=== PATIENT | female | born 1930 | race Caucasian/White ===

== ENCOUNTER 2017-03-27 14:46 | Emergency (ER) | payer MEDICARE, BC ==
[2017-03-27 14:55] VITALS: BP 156/62
--- NOTE | 2017-03-27 15:17 | UC ---
Upper Extremity HPI - HPI Summary HPI Summary: pt presents with c/o left upper arm pain that was sudden after lifting a heavy box. Pt reports feeling of sudden "snap, pain" and "balling up" of left upper bicep. - History of Current Complaint Chief Complaint: UCUpperExtremity Stated Complaint: LEFT ARM INJURY Time Seen by Provider: 03/27/17 14:57 Hx Obtained From: Patient Hx Last Menstrual Period: n/a ?: No Onset/Duration: Sudden Onset, Still Present Severity Initially: Moderate Severity Currently: Mild Location Of Pain: Is Discrete @ - left upper arm/bicep Character: Dull, Aching Aggravating Factor(s): Movement, Lifting, Flexion, Extension, Internal/External Rotation, Abduction, Adduction Alleviating Factor(s): Rest Related History: Dominant Hand Right - Risk Factors DVT Risk Factors: Recent Travel - Allergies/Home Medications Allergies/Adverse Reactions: Allergies Allergy/AdvReac Type Severity Reaction Status Date / Time No Known Allergies Allergy Verified 03/27/17 14:55 PMH/Surg Hx/FS Hx/Imm Hx Previously Healthy: Yes - Surgical History Surgical History: Yes Surgery Procedure, Year, and Place: 1994 APPENDECTOMY, [place], [place]. 1989' UMBILICAL HERNIA REPAIR, [facility]. 1999 LEFT TOTAL KNEE REPLACEMENT, [facility]. 2003 RIGHT TOTAL KNEE REPLACEMENT, [place]. 2008 RIGHT TOTAL HIP REPLACEMENT, [facility] [address] , Rt Breast Lumpectomy 2008- [place]. 2009 RIGHT BREAST LUMPECTOMY, [place]. 2011 BILATERAL GROIN HERNIA (1 WAS "FAT"), [facility]. 2013 BACK SURGERY FUSION OF LOWER SPINE BONE, [facility]. SURGERY TO REPAIR WRINKLE RETINA. TUBAL LIGATION, - Family History Known Family History: Positive: Cardiac Disease - Social History Alcohol Use: Occasionally Substance Use Type: None Smoking Status (MU): Former Smoker Review of Systems Constitutional: Negative Skin: Negative Eyes: Negative ENT: Negative Respiratory: Negative Cardiovascular: Negative Gastrointestinal: Negative Genitourinary: Negative Motor: Decreased ROM - left elbow and upper extremity, Weakness - left upper extremity Neurovascular: Negative Musculoskeletal: Arthralgia, Decreased ROM - left elbow, upper extremity, Myalgia, Other: - positive "popye" sign in left upper arm/bicep Neurological: Negative Psychological: Negative All Other Systems Reviewed And Are Negative: Yes Physical Exam Triage Information Reviewed: Yes Appearance: Well-Appearing Vital Signs: Initial Vital Signs Temp 97.7 F 03/27/17 14:51 Pulse 86 03/27/17 14:51 Resp 14 03/27/17 14:51 BP 156/62 03/27/17 14:51 Pulse Ox 96 03/27/17 14:51 Eye Exam: Normal Respiratory Exam: Normal Respiratory: Positive: No respiratory distress Musculoskeletal: Positive: Strength Limited @ - left upper extremity, ROM Limited @ - left elbow, and upper extremity, Other: - positive popye sign left upper arm/bicep. Pt tenderness at anterior humeral head Neurological Exam: Normal Psychological Exam: Normal Skin Exam: Normal Upper Extremity Course/Dx - Course Course Of Treatment: I discussed with the pt the need to follow up with Dr. Andre as soon as possible for orthopedic evaluation. Pt verbalized understanding and agreed to plan of care. - Differential Dx/Diagnosis Differential Diagnosis/HQI/PQRI: Strain, Sprain Provider Diagnoses: left biceps tendon rupture. Discharge - Discharge Plan Condition: Stable Disposition: HOME Patient Education Materials: Tendon Rupture (ED) Referrals: Ivette Guerrero MD [Primary Care Provider] - Hung Andre MD [Medical Doctor] - Additional Instructions: Please go directly to Dr. Andre office upon release from urgent care.
== END 2017-03-27 15:19 | disposition home or self-care (01) ==
LOC: UCCORT 14:46
DX: S46.212A Strain of muscle, fascia and tendon of other parts of biceps, left arm, initial encounter (principal); X50.0XXA Overexertion from strenuous movement or load, initial encounter; Y92.9 Unspecified place or not applicable; Z87.891 Personal history of nicotine dependence
CPT/HCPCS: 99212; G0463

== ENCOUNTER 2017-10-20 09:11 | Emergency (ER) | payer MEDICARE, BC ==
[2017-10-20 10:12] VITALS: BP 148/66
--- NOTE | 2017-10-20 11:38 | UC ---
FLU HPI - HPI Summary HPI Summary: P tc/o sudden onset of fever, chills, body aches and cough X 2 days. - History of Current Complaint Chief Complaint: UCGeneralIllness Stated Complaint: FLU LIKE SYMPTOMS Time Seen by Provider: 10/20/17 11:14 Hx Obtained From: Patient Hx Last Menstrual Period: n/a ?: No Onset/Duration: Sudden Onset, Lasting Days Severity Currently: Mild Severity Initially: Moderate Pain Intensity: 0 Associated Signs & Symptoms: Positive: Fever, Myalgia, Nasal Congestion, Headache Related Hx: Possible Flu/Infectious Exposure - Risk Factors Influenza Risk Factors: Age 65 y/o or Older - Allergy/Home Medications Allergies/Adverse Reactions: Allergies Allergy/AdvReac Type Severity Reaction Status Date / Time No Known Allergies Allergy Verified 10/20/17 10:09 PMH/Surg Hx/FS Hx/Imm Hx Previously Healthy: Yes - Surgical History Surgical History: Yes Surgery Procedure, Year, and Place: 1994 APPENDECTOMY, [place], [place]. 1989' UMBILICAL HERNIA REPAIR, [facility]. 1999 LEFT TOTAL KNEE REPLACEMENT, [facility]. 2003 RIGHT TOTAL KNEE REPLACEMENT, [place]. 2007 RIGHT TOTAL HIP REPLACEMENT, [facility] , Rt Breast Lumpectomy 2008- [place]. 2008 RIGHT BREAST LUMPECTOMY, [place]. 2010 BILATERAL GROIN HERNIA (1 WAS "FAT"), [facility]. 2013 BACK SURGERY FUSION OF LOWER SPINE BONE, [facility]. SURGERY TO REPAIR WRINKLE RETINA. TUBAL LIGATION, - Family History Known Family History: Positive: Cardiac Disease - Social History Occupation: Retired Lives: With Family Alcohol Use: Occasionally Substance Use Type: None Smoking Status (MU): Former Smoker Have You Smoked in the Last Year: No Review of Systems Constitutional: Fever, Chills, Fatigue Skin: Negative Eyes: Negative ENT: Sinus Congestion Respiratory: Cough Cardiovascular: Negative Gastrointestinal: Negative Genitourinary: Negative Motor: Negative Neurovascular: Negative Musculoskeletal: Myalgia Neurological: Headache Psychological: Negative Is Patient Immunocompromised?: No All Other Systems Reviewed And Are Negative: Yes Physical Exam Triage Information Reviewed: Yes Appearance: Ill-Appearing Vital Signs: Initial Vital Signs Temp 99.1 F 10/20/17 10:06 Pulse 90 10/20/17 10:06 Resp 18 10/20/17 10:06 BP 148/66 02/02/18 10:06 Pulse Ox 97 10/20/17 10:06 Vital Signs Reviewed: Yes Eye Exam: Normal ENT Exam: Other ENT: Positive: Nasal congestion Dental Exam: Normal Neck exam: Normal Respiratory Exam: Other Respiratory: Positive: Wheezing Cardiovascular Exam: Normal Musculoskeletal Exam: Normal Neurological Exam: Normal Psychological Exam: Normal Skin Exam: Normal Diagnostics - Laboratory Diagnostic Studies Completed/Ordered: Rapid influenza positive: A Flu Course/Dx - Course Course Of Treatment: Rapid influenza positive: A - Differential Dx/Diagnosis Differential Diagnosis/HQI/PQRI: Bronchitis, Influenza Provider Diagnoses: Influenza A. Bronchitis Discharge - Discharge Plan Condition: Stable Disposition: HOME Prescriptions: Benzonatate CAP* [Tessalon 100 MG CAP*] 100 mg PO Q8H PRN #30 cap PRN Reason: Cough DOXYcycline CAP(*) [DOXYcycline 100MG CAP(*)] 100 mg PO Q12H #20 cap Oseltamivir CAP* [Tamiflu CAP*] 75 mg PO Q12H #10 cap predniSONE TAB* [Deltasone TAB*] 30 mg PO DAILY #9 tab Patient Education Materials: Influenza (ED), Acute Bronchitis (ED) Referrals: Ivette Guerrero MD [Primary Care Provider] - If Needed
== END 2017-10-20 12:00 | disposition home or self-care (01) ==
LOC: UCCORT 09:11
DX: J09.X2 Influenza due to identified novel influenza A virus with other respiratory manifestations (principal); J40 Bronchitis, not specified as acute or chronic; Z72.89 Other problems related to lifestyle; Z87.891 Personal history of nicotine dependence
CPT/HCPCS: 87502; 99212; G0463

== ENCOUNTER 2018-09-19 10:34 | Emergency (ER) | payer MEDICARE, BC ==
[2018-09-19 13:19] VITALS: BP 145/78
--- NOTE | 2018-09-19 13:37 | UC ---
FLU HPI - HPI Summary HPI Summary: 87 year old female with PMH + for elevated chol, on vitamins/ chol med, no recent sicknesses/ abx use presents with ~ 5 day h/o sinus congestion, cough- productive at times. no fever, chills, no new body aches, no throat/ ear pain. no GI symptoms. - History of Current Complaint Chief Complaint: UCRespiratory Stated Complaint: COUGH CONGESTION Time Seen by Provider: 09/19/18 13:14 Hx Obtained From: Patient Hx Last Menstrual Period: n/a ?: No Onset/Duration: Sudden Onset, Lasting Days Severity Currently: Mild Severity Initially: Moderate Pain Intensity: 5 Pain Scale Used: 0-10 Numeric Associated Signs & Symptoms: Positive: Cough, Nasal Congestion. Negative: Fever , T Max, F/C, Sore Throat, Vomiting, Diarrhea - Allergy/Home Medications Allergies/Adverse Reactions: Allergies Allergy/AdvReac Type Severity Reaction Status Date / Time No Known Allergies Allergy Verified 09/19/18 13:14 PMH/Surg Hx/FS Hx/Imm Hx Previously Healthy: Yes - elevated cholesterol - Surgical History Surgical History: Yes Surgery Procedure, Year, and Place: 1994 APPENDECTOMY, [place], [place]. UMBILICAL HERNIA REPAIR, [facility]. 1999 LEFT TOTAL KNEE REPLACEMENT, [facility]. 2003 RIGHT TOTAL KNEE REPLACEMENT, [place]. 2008 RIGHT TOTAL HIP REPLACEMENT, [facility] ,. 2009 RIGHT BREAST LUMPECTOMY, [place]. 2011 BILATERAL GROIN HERNIA (1 WAS "FAT"), [facility]. 2013 BACK SURGERY FUSION OF LOWER SPINE BONE, [facility]. SURGERY TO REPAIR WRINKLE RETINA. TUBAL LIGATION, - Family History Known Family History: Positive: Cardiac Disease - Social History Alcohol Use: Occasionally Substance Use Type: None Smoking Status (MU): Former Smoker Have You Smoked in the Last Year: No Review of Systems All Other Systems Reviewed And Are Negative: Yes Constitutional: Positive: Negative, Fatigue. Negative: Fever, Chills Skin: Positive: Negative Eyes: Positive: Negative ENT: Positive: Nasal Discharge, Sinus Congestion, Sinus Pain/Tenderness. Negative: Sore Throat, Ear Ache Respiratory: Positive: Cough Is Patient Immunocompromised?: No Physical Exam Triage Information Reviewed: Yes Appearance: No Pain Distress, Well-Nourished, Ill-Appearing - minimal Vital Signs: Initial Vital Signs Temp 97.9 F 09/19/18 13:15 Pulse 79 09/19/18 13:15 Resp 18 09/19/18 13:15 BP 145/78 09/19/18 13:15 Pulse Ox 98 09/19/18 13:15 Eyes: Positive: Conjunctiva Clear ENT: Positive: Pharynx normal, TMs normal - mild fluid posterior TM b/l, Sinus tenderness - frontal, max b/l, Uvula midline. Negative: Tonsillar swelling, Tonsillar exudate, Hoarse voice, Dental tenderness Neck: Positive: Supple, Nontender, No Lymphadenopathy Respiratory: Positive: Chest non-tender, Lungs clear, Normal breath sounds, No respiratory distress, No accessory muscle use, Wheezing - bronchus Cardiovascular: Positive: RRR, Pulses Normal Flu Course/Dx - Course Course Of Treatment: rapid flu- negative, tx for sinusitis, acute bronchitis, abx given, follow up with pcp - Differential Dx/Diagnosis Differential Diagnosis/HQI/PQRI: Bronchitis, Broncholiolitis Provider Diagnosis: Acute bronchitis, Sinusitis Discharge - Sign-Out/Discharge Documenting (check all that apply): Patient Departure All imaging exams completed and their final reports reviewed: No Studies - Discharge Plan Condition: Good Disposition: HOME Prescriptions: Amoxicillin PO (*) [Amoxicillin 500 MG CAP*] 500 mg PO TID #21 cap Patient Education Materials: Acute Bronchitis (ED) Referrals: Ivette Guerrero MD [Primary Care Provider] - Additional Instructions: - FOllow up with primary physician within 2-3 days if no improvement - Antibiotics as directed - Increase fluid intake - GO to ER with lightheadedness, headache, increased symptoms, fever > 101 - over the counter medications for symptoms- tylenol for headache. - Billing Disposition and Condition Condition: GOOD Disposition: Home - Attestation Statements Provider Attestation: I was available for consult. This patient was seen by the [facility]. The patient was not presented to, seen by, or examined by me. -Vianey
== END 2018-09-19 13:46 | disposition home or self-care (01) ==
LOC: UCCORT 10:34
DX: J20.9 Acute bronchitis, unspecified (principal); J32.9 Chronic sinusitis, unspecified; Z87.891 Personal history of nicotine dependence
CPT/HCPCS: 99212; G0463

== ENCOUNTER 2019-04-11 08:23 | Emergency (ER) | payer MEDICARE, BC ==
[2019-04-11 08:44] VITALS: BP 147/71
--- NOTE | 2019-04-11 08:52 | UC ---
Respiratory Complaint HPI - HPI Summary HPI Summary: 88 year old with multiple compaints. Chief complaint of unproductive cough for the past 7-10 days that has been getting progressively worse. Pt reports fatigue , some body aches, some wheezing, hoarse voice. Also had diarrhea in the past week that is now resolved. Cough worsening since her trip to to see family. No sinus congestion. Pt felt it necessary to mention that fell 04/02, she hit her head, her L leg/ knee - pt went to ER, diagnostic imaging was unremarkable. [ End ] - History of Current Complaint Chief Complaint: UCGeneralIllness Stated Complaint: ACHY,COUGH,CHEST CONGESTION Time Seen by Provider: 04/11/19 08:46 Hx Obtained From: Patient Hx Last Menstrual Period: n/a ?: No Onset/Duration: Gradual Onset Timing: Constant Severity Initially: Mild Severity Currently: Moderate Pain Intensity: 8 Character: Cough: Nonproductive Aggravating Factors: Exertion - Allergies/Home Medications Allergies/Adverse Reactions: Allergies Allergy/AdvReac Type Severity Reaction Status Date / Time No Known Allergies Allergy Verified 04/11/19 08:45 Home Medications: Home Medications Bismuth Subsalicylate [Pepto-Bismol] 30 ml PO ONCE 04/11/19 [History Confirmed 04/11/19] PMH/Surg Hx/FS Hx/Imm Hx Previously Healthy: Yes Endocrine History: Dyslipidemia - Surgical History Surgical History: Yes Surgery Procedure, Year, and Place: 1994 APPENDECTOMY, [place], [place]. UMBILICAL HERNIA REPAIR, [facility]. 1999 LEFT TOTAL KNEE REPLACEMENT, [facility]. 2003 RIGHT TOTAL KNEE REPLACEMENT, [place]. 2007 RIGHT TOTAL HIP REPLACEMENT, [facility] ,. 2009 RIGHT BREAST LUMPECTOMY, [place]. 2011 BILATERAL GROIN HERNIA (1 WAS "FAT"), [facility]. 2013 BACK SURGERY FUSION OF LOWER SPINE BONE, [facility]. SURGERY TO REPAIR WRINKLE RETINA. TUBAL LIGATION, - Family History Known Family History: Positive: Cardiac Disease - Social History Occupation: Retired Alcohol Use: Occasionally Substance Use Type: None Smoking Status (MU): Former Smoker Have You Smoked in the Last Year: No Review of Systems All Other Systems Reviewed And Are Negative: Yes Constitutional: Positive: Fatigue Respiratory: Positive: Cough Is Patient Immunocompromised?: No Physical Exam Triage Information Reviewed: Yes Appearance: Well-Appearing, No Pain Distress, Well-Nourished Vital Signs: Initial Vital Signs Temp 97.9 F 04/11/19 08:36 Pulse 95 04/11/19 08:36 Resp 18 04/11/19 08:36 BP 147/71 04/11/19 08:36 Pulse Ox 97 04/11/19 08:36 Vital Signs Reviewed: Yes Eye Exam: Normal ENT Exam: Normal Dental Exam: Normal Neck exam: Normal Neck: Positive: 1 Respiratory Exam: Normal Cardiovascular Exam: Normal Musculoskeletal Exam: Normal Neurological Exam: Normal Psychological Exam: Normal Skin Exam: Normal Skin: Positive: Other - right anterior stein with moderate amounts of bruising with small superficial linear abrasion without discharge or drainage or erythema. neg Homans sign Respiratory Course/Dx - Course Course Of Treatment: Based on numerous complaints of recent but now resolved diarrhea, cougg, fatigue, neg XR and no source for bacterial infection advise to treat with supportive care. no stat labs available at this time for WBC and patient aware of our limitations . I advise if any symptoms worsen to go to ED for higher level of care as she declined going to ED at this time. CXR neg - Differential Dx/Diagnosis Differential Diagnosis/HQI/PQRI: Bronchitis, Laryngitis, Lower Resp Infection, Other - URI, Virall illness Provider Diagnosis: Viral URI with cough Discharge - Sign-Out/Discharge Documenting (check all that apply): Patient Departure All imaging exams completed and their final reports reviewed: Yes - Discharge Plan Condition: Good Disposition: HOME Patient Education Materials: Viral Syndrome (ED) Referrals: Ivette Guerrero MD [Primary Care Provider] - 4 Days Additional Instructions: As we discussed if there are any concerns for your symptoms not improving or worsening please go to the Emergency Room. Today your chest xray did not reveal any concerns - Billing Disposition and Condition Condition: GOOD Disposition: Home
== END 2019-04-11 09:50 | disposition home or self-care (01) ==
LOC: UCCORT 08:23
DX: J06.9 Acute upper respiratory infection, unspecified (principal); Z98.1 Arthrodesis status
CPT/HCPCS: 71046; 99211; G0463